=== PATIENT | female | born 2000 | race Caucasian/White ===

== ENCOUNTER → 2018-09-12 13:50 | Outpatient (CLI) | payer OTHER, SELFPAY ==
[2018-09-12 14:59] LABS: Add Manual Diff / Slide Review NO; Basophils Absolute Auto 0 /uL (0-100); Basophils Percent Auto 0.5 % (0-2); Eosinophils Absolute Auto 0 /uL (0-450); Eosinophils Percent Auto 0.5 % (2-4); Hematocrit 39.8 % (36-46); Hemoglobin 13.1 g/dL (12.0-16.0); Lymphocytes Absolute Auto 2400 /uL (1100-4500); Lymphocytes Percent Auto 29.2 % (25-40); Mean Corpuscular Hemoglobin 28.1 PG (26-34); Mean Corpuscular Volume 85.3 fL (80-100); Monocytes Absolute Auto 500 /uL (0-900); Monocytes Percent Auto 5.7 % (3-14); Neutrophils Absolute Auto 5200 /uL (1500-7000); Neutrophils Percent Auto 64.1 % (50-75); Platelet Count 393 X10^3/uL (150-400); Red Blood Cell Count 4.67 X10^6/uL (4.0-5.2); Red Cell Distribution Width 12.4 % (11.6-14.8); White Blood Cell Count 8.2 X10^3/uL (4.5-11.0)
[2018-09-12 15:11] LABS: Alanine Aminotransferase 26 IU/L (9-52); Albumin 4.5 g/dL (3.5-5.0); Albumin Globulin Ratio 1.6 (1.0-2.8); Alkaline Phosphatase 48 U/L (38-126); Aspartate Aminotransferase 24 IU/L (14-36); BUN Creatinine Ratio 17.5 (6-22); Bilirubin Total 0.2 mg/dL (0.2-1.3); Blood Urea Nitrogen 14 mg/dL (7-17); Carbon Dioxide 26 mmol/L (22-32); Chloride 104 mmol/L (98-107); Estimated Glomerular Filt Rate > 60.0 mL/min (>60); Globulin 2.9 g/dL (1.7-4.1); Glucose 91 mg/dL (70-100); HEMOLYSIS < 15 (0-50); Potassium 3.9 mmol/L (3.4-5.1); Sodium 141 mmol/L (137-145); Total Protein 7.4 g/dL (6.3-8.2)
[2018-09-12 15:42] LABS: TSH w/ Reflex to FT4 1.77 uIU/mL (0.47-4.68)
== END ==
PROVIDERS: PCP Family Medicine; Visit Provider Registered Nurse
DX: R53.83 Other fatigue (principal)
CPT/HCPCS: 36415; 80053; 82306; 84443; 85025

== ENCOUNTER → 2019-07-03 08:41 | Outpatient (CLI) | payer OTHER, SELFPAY ==
--- NOTE | 2019-07-03 08:42 | DI.US.S_ITS ---
PROCEDURE: US PELVIC COMPLETE INDICATIONS: PELVIC PAIN X 1 MONTH TECHNIQUE: Real-time scanning was performed of the pelvic organs, with image documentation. Additional endovaginal scanning was necessary due to incomplete visualization of the adnexal and endometrial structures by transabdominal scanning. COMPARISON: None. FINDINGS: Transabdominal scanning: Limited scanning through the kidneys shows no hydronephrosis. No pathologic free abdominal or pelvic fluid. Endovaginal scanning: Uterus: Uterus is normal in size at 7.7 x 3.4 x 3.8 cm. The endometrium measures 3.8 mm in combined thickness. Ovaries: Normal ovaries bilaterally. No adnexal masses. No abnormal free fluid. IMPRESSION: No source for pelvic pain identified. Dictated by: Balwinder Munoz [facility] Interpreted: Ed Bhandari MD on 07/03/2019 at 11:01 Approved by: Ed Bhandari M.D. on 07/03/2019 at 11:52
== END ==
PROVIDERS: PCP Family Medicine; Visit Provider Family Medicine
DX: R10.2 Pelvic and perineal pain (principal)
CPT/HCPCS: 76830; 76856

== ENCOUNTER → 2019-08-10 15:49 | Outpatient (CLI) | payer OTHER, SELFPAY | PROVIDERS: PCP Family Medicine; Visit Provider Physician Assistant | DX: Q79.60 Ehlers-Danlos syndrome, unspecified (principal) | CPT/HCPCS: 87086 ==

== ENCOUNTER → 2020-04-11 15:32 | Outpatient (CLI) | payer OTHER, SELFPAY ==
[2020-04-11 16:58] LABS: Add Manual Diff / Slide Review NO; Basophils Absolute Auto 100 /uL (0-100); Basophils Percent Auto 0.8 % (0-2); Eosinophils Absolute Auto 100 /uL (0-450); Eosinophils Percent Auto 1.7 % (2-4); Hematocrit 43.3 % (36-46); Hemoglobin 14.7 g/dL (12.0-16.0); Lymphocytes Absolute Auto 2600 /uL (1100-4500); Mean Corpuscular HGB Conc 33.8 % (30-36); Mean Corpuscular Hemoglobin 29.1 PG (26-34); Mean Corpuscular Volume 86.1 fL (80-100); Monocytes Absolute Auto 500 /uL (0-900); Monocytes Percent Auto 6.2 % (3-14); Neutrophils Absolute Auto 5400 /uL (1500-7000); Neutrophils Percent Auto 61.3 % (50-75); Platelet Count 359 X10^3/uL (150-400); Red Blood Cell Count 5.03 X10^6/uL (4.0-5.2); Red Cell Distribution Width 12.6 % (11.6-14.8); White Blood Cell Count 8.8 X10^3/uL (4.5-11.0)
[2020-04-11 17:33] LABS: BUN Creatinine Ratio 22.8 (6-22); Blood Urea Nitrogen 13 mg/dL (7-17); Calcium 10.1 mg/dL (8.4-10.2); Carbon Dioxide 27 mmol/L (22-32); Chloride 102 mmol/L (98-107); Estimated Glomerular Filt Rate > 60.0 mL/min (>60); Glucose 81 mg/dL (70-100); HEMOLYSIS < 15 (0-50); Potassium 4.6 mmol/L (3.4-5.1); Sodium 140 mmol/L (137-145)
[2020-04-11 17:35] LABS: C-Reactive Protein Quant < 0.5 mg/dL (<1.0); Erythrocyte Sedimentation Rate 5 MM/HR (0-20)
== END ==
PROVIDERS: PCP Family Medicine; Referring Provider Family Medicine; Visit Provider Family Medicine
DX: G44.209 Tension-type headache, unspecified, not intractable (principal)
CPT/HCPCS: 36415; 80048; 85025; 85651; 86140

== ENCOUNTER → 2020-04-15 07:37 | Outpatient (CLI) | payer OTHER, SELFPAY ==
--- NOTE | 2020-04-15 07:38 | DI.MRI.S_ITS ---
PROCEDURE: MR HEAD/BRAIN WO/W CON INDICATIONS: Persistent, new headache TECHNIQUE: Noncontrast axial T1 spin echo, axial T2 fast spin echo, sagittal and axial FLAIR, coronal T2 fast spin echo, axial gradient echo, axial diffusion and ADC through the brain. After the administration of contrast, axial and coronal 3D VIBE or T1 spin echo with fat saturation through the brain. COMPARISON: None. FINDINGS: Image quality: Excellent. CSF Spaces: Basal cisterns are patent. No extra-axial fluid collections. Ventricles are normal in size and shape. Cavum septum vergae is present. Brain: No midline shift. No intracranial bleeds or masses. No abnormal intracranial enhancement. The brainstem appears normal. Diffusion-weighted images demonstrate no acute ischemic insults. No chronic ischemic insults. Normal intravascular flow voids are present. Skull and face: Calvarial marrow is normal in signal. Orbits appear normal. Sinuses: Sinuses and mastoids appear clear. IMPRESSION: 1. Negative brain MRI. No explanation for headache. 2. No recent infarct. No acute process. Dictated by: Manuel Canales M.D. on 04/15/2020 at 8:38 Approved by: Manuel Canales M.D. on 04/15/2020 at 8:39
== END ==
PROVIDERS: PCP Family Medicine; Referring Provider Family Medicine; Visit Provider Family Medicine
DX: G44.209 Tension-type headache, unspecified, not intractable (principal)
CPT/HCPCS: 70553

== ENCOUNTER → 2020-11-01 10:15 | Outpatient (CLI) | payer OTHER, SELFPAY ==
[2020-11-01 11:19] LABS: D Dimer 238 ng/mL (<230)
== END ==
PROVIDERS: PCP Family Medicine; Referring Provider Student in an Organized Health Care Education/Training Program; Visit Provider Student in an Organized Health Care Education/Training Program
DX: M79.605 Pain in left leg (principal)
CPT/HCPCS: 36415; 85379

== ENCOUNTER → 2020-11-02 09:34 | Outpatient (CLI) | payer OTHER, SELFPAY ==
--- NOTE | 2020-11-02 09:36 | DI.US.S_ITS ---
PROCEDURE: US PERIPH VENOUS LOW EXTREM LT INDICATIONS: R/O DVT TECHNIQUE: Real-time imaging, as well as color and pulse Doppler interrogation, were performed of the lower extremity deep veins from the inguinal ligament to the popliteal fossa. COMPARISON: None. FINDINGS: The common femoral, femoral and popliteal veins are normally compressible, and free of intraluminal thrombus. Color and pulse Doppler demonstrate normal phasic intraluminal flow. There is normal augmentation response to distal compression maneuver. IMPRESSION: Negative left lower extremity duplex venous ultrasound for DVT. Dictated by: Paul Mak M.D. on 11/02/2020 at 10:40 Approved by: Paul Mak M.D. on 11/02/2020 at 10:40
== END ==
PROVIDERS: PCP Family Medicine; Referring Provider Student in an Organized Health Care Education/Training Program; Visit Provider Student in an Organized Health Care Education/Training Program
DX: M79.605 Pain in left leg (principal)
CPT/HCPCS: 93971

== ENCOUNTER → 2021-01-13 12:04 | Outpatient (CLI) | payer OTHER, SELFPAY ==
[2021-01-13 12:29] LABS: COVID19 -Nasal RAPID Negative (Negative)
[2021-01-13 12:42] LABS: Add Manual Diff / Slide Review NO; Basophils Absolute Auto 0 /uL (0-100); Basophils Percent Auto 0.6 % (0-2); Eosinophils Absolute Auto 100 /uL (0-450); Eosinophils Percent Auto 1.2 % (2-4); Hematocrit 42.4 % (36-46); Hemoglobin 14.3 g/dL (12.0-16.0); Lymphocytes Absolute Auto 2100 /uL (1100-4500); Lymphocytes Percent Auto 29.4 % (25-40); Mean Corpuscular HGB Conc 33.7 % (30-36); Mean Corpuscular Hemoglobin 29.2 PG (26-34); Mean Corpuscular Volume 86.5 fL (80-100); Monocytes Absolute Auto 500 /uL (0-900); Monocytes Percent Auto 7.6 % (3-14); Neutrophils Absolute Auto 4400 /uL (1500-7000); Neutrophils Percent Auto 61.2 % (50-75); Platelet Count 327 X10^3/uL (150-400); Red Cell Distribution Width 12.9 % (11.6-14.8); White Blood Cell Count 7.2 X10^3/uL (4.5-11.0)
[2021-01-13 12:53] LABS: Monotest Negative (Negative)
== END ==
PROVIDERS: PCP Family Medicine; Visit Provider Physician Assistant
DX: J02.9 Acute pharyngitis, unspecified (principal); R05 Cough; R50.9 Fever, unspecified; R59.9 Enlarged lymph nodes, unspecified; Z20.822 Contact with and (suspected) exposure to COVID-19
CPT/HCPCS: 36415; 85025; 86318; 87070; 87147; 87635

== ENCOUNTER 2021-01-13 14:42 | Emergency (ER) | payer OTHER, SELFPAY ==
[2021-01-13 14:53] VITALS: BP 135/88; PULSE 79; RESP 15; TEMP 37.2; O2SAT 97; BMI 37.1
--- NOTE | 2021-01-13 20:00 | PC.NURSE ---
Spoke with patient, increase headache, neck pain and pain with swallowing. Verbal order from Dr Fletcher for tylenol for pain.
[2021-01-13] MEDS: ACETAMINOPHEN 325 MG TABLET 975 MG PO (20:04)
[2021-01-13 22:24] VITALS: PULSE 63; O2SAT 99
[2021-01-13 22:30] VITALS: PULSE 64; O2SAT 99
--- NOTE | 2021-01-13 22:58 | ED_ITS ---
HPI - Headache General Chief Complaint: Headache Stated Complaint: sent from [facility], poss meningitis, neck pain, swollen Time Seen by Provider: 01/13/21 22:31 Source: patient Mode of arrival: Ambulatory Limitations: no limitations History of Present Illness HPI Narrative: 20-year-old female nonsmoker with history of anxiety presents with significant other and a chief complaint of silly increasing left-sided neck pain and swelling along with sore throat since yesterday. There is no fever, photophobia, exertional symptoms, confusion. Patient had negative strep, COVID and for further evaluation. Patient denies any runny nose or trouble swallowing. She has no difficulty breathing, chest pain or cough. She denies any obvious provocation, palliation or radiation. She is developing of vague, generalized headache MD Complaint: headache Onset (ago): hour(s) Onset description: gradual Location: occipital Severity: mild Quality: aching, throbbing and different than previous headaches Relieving factors: nothing Exacerbating factors: none Treatments prior to arrival: none Related Data Home Medications Medication Instructions Recorded Confirmed multivitamin [Multiple Vitamins] 1 tab PO QDAY #0 08/12/17 01/13/21 Previous Rx's Medication Instructions Recorded baclofen 10 mg tablet 10 mg PO TID PRN #30 tab 08/21/19 hydroxyzine HCl 25 mg tablet See Rx Instructions PO TID PRN #30 06/15/20 tab citalopram 10 mg tablet 10 mg PO DAILY #90 tab 09/26/20 Allergies Allergy/AdvReac Type Severity Reaction Status Date / Time ibuprofen Allergy Mild LIPS SWELL Verified 01/13/21 14:53 Sulfa (Sulfonamide Allergy Mild RASH Verified 01/13/21 14:53 Antibiotics) Review of Systems Constitutional Constitutional: Denies chills, Denies fatigue, Denies fever(s), Denies frequent falls, Reports headache(s), Denies lethargy and Denies weakness Eyes Eyes: Denies change in vision, Denies eye discharge, Denies irritation and Denies loss of vision ENT Ears, Nose, Mouth, and Throat: Denies change in voice, Denies dizziness, Reports headache(s), Reports neck pain, Denies sore throat and Denies throat swelling Cardiovascular Cardiovascular: Denies chest pain, Denies irregular heart rhythm, Denies lightheadedness, Denies palpitations, Denies dyspnea, Denies dyspnea on exertion and Denies orthopnea Respiratory Respiratory: Denies cough, Denies dyspnea, Denies dyspnea on exertion and Denies wheezing Gastrointestinal Gastrointestinal: Denies abdominal pain, Denies change in bowel habits, Denies diarrhea, Denies nausea and Denies vomiting Musculoskeletal Musculoskeletal: Reports neck pain and Denies numbness Integumentary/Breasts Skin/Breast: Denies pruritus, Denies erythema, Denies rash and Denies wounds Neurologic Neurologic: Denies behavioral changes, Denies confusion, Denies dizziness, Denies frequent falls, Reports headache(s), Denies loss of vision, Denies numbness and Denies weakness Psychiatric Psychiatric: Denies anxiety, Denies behavioral changes, Denies confusion, Denies depression, Denies homicidal ideation and Denies suicidal ideation Endocrine Endocrine: Denies fatigue, Denies flushing and Denies palpitations Hematologic/Lymphatic Hematologic/Lymphatic: Denies easy bruising Allergic/Immunologic Allergic/Immunologic: Denies urticaria, Denies throat swelling and Denies wheezing Patient History Medical History Depression Caridad-Danlos syndrome Family history of breast cancer Latex allergy Surgical History History of ankle surgery History of knee surgery Family History Mother Caridad-Danlos syndrome Social History Smoking Status: Never smoker alcohol intake: never substance use type: does not use Smoking Status: Never smoker alcohol intake frequency: holidays/special occasions only Substance Use Type: marijuana Exam Narrative Exam Narrative: GENERAL: [20] year old patient appears stated age. Well- developed patient, in mild distress. GCS 15 HEAD: Atraumatic. Normocephalic. EYES: Pupils equal round and reactive. Extraocular motions intact. No scleral icterus. No injection or drainage. ENT: Nose without bleeding, purulent drainage. Throat without erythema, tonsillar hypertrophy or exudate. Airway patent. NECK: Trachea midline. No meningeal signs. Tender lymphadenopathy bilaterally without any erythema, warmth, induration or fluctuance. CARDIOVASCULAR: Regular rate and rhythm without murmurs, gallops, or rubs. RESPIRATORY: Clear to auscultation. Breath sounds equal bilaterally. No wheezes, rales, or rhonchi. GASTROINTESTINAL: Abdomen soft, non-tender, nondistended. EXTREMITIES: No edema or joint tenderness. BACK: Nontender without deformity or crepitance. No flank tenderness. NEURO: AOx3. SKIN: No rash or erythema of visible areas Initial Vital Signs Initial Vital Signs: Vital Signs Temperature 99.0 F 01/13/21 14:53 Pulse Rate 79 01/13/21 14:53 Respiratory Rate 15 01/13/21 14:53 Blood Pressure 135/88 01/13/21 14:53 Pulse Oximetry 97 01/13/21 14:53 Procedures Lumbar Puncture Time Out Performed: Yes Patient Position: upright Skin Prep: Povidone-Iodine 1% Local Anesthetic: lidocaine 1% Amount of anesthesia used (mL): 6 Spinal Needle Gauge: 22G Interspace Used: L4-L5 Fluid Initially Obtained: clear Complications: none Course Orders Ordered: ED Orders 01/13/21 23:15 CT soft tissue neck w con Stat 01/13/21 23:25 Complete Blood Count AUTO DIFF Stat Comprehensive Metabolic Panel Stat 01/14/21 04:05 CSF culture Stat Cell Count w Diff CSF Stat Glucose CSF Stat Meningitis Panel (Film Array) Stat Total Protein CSF Stat Discontinued Medications Acetaminophen (Acetaminophen 325 Mg Tablet) 975 mg PO NOW ONE Stop: 01/13/21 20:01 Last Admin: 01/13/21 20:04 Dose: 975 mg Documented by: DENY Sodium Chloride (Normal Saline 0.9%) 1,000 mls @ 1,000 mls/hr IV BOLUS ONE Stop: 01/14/21 00:14 Last Infusion: 01/14/21 00:40 Dose: 0 mls/hr Documented by: [email or web address] Admin: 01/13/21 23:29 Dose: 1,000 mls/hr Documented by: [email or web address] Vital Signs Vital signs: Vital Signs - 8 hr 01/13/21 22:24 01/13/21 22:30 01/13/21 23:00 Pulse Rate 63 64 65 Blood Pressure 112/57 L Pulse Oximetry 99 99 98 01/14/21 01:11 01/14/21 01:14 01/14/21 01:30 Pulse Rate 76 71 64 Blood Pressure 105/56 L 114/64 Pulse Oximetry 97 98 98 06/26/21 02:00 01/14/21 02:32 01/14/21 03:00 Pulse Rate 68 76 67 Blood Pressure 117/56 L Pulse Oximetry 96 97 96 01/14/21 03:30 01/14/21 04:45 01/14/21 04:46 Pulse Rate 70 71 70 Blood Pressure 123/66 Pulse Oximetry 96 98 97 01/14/21 05:00 01/14/21 05:30 Pulse Rate 66 67 Blood Pressure 105/55 L 112/60 Pulse Oximetry 97 96 MDM - Headache Lab Data Result diagrams: 01/13/21 23:25 01/13/21 23:25 Labs: Lab Results 01/13/21 01/13/21 01/14/21 Range/Units 23:25 23:25 04:05 WBC 9.7 (4.5-11.0) X10^3/uL RBC 4.96 (4.0-5.2) X10^6/uL Hgb 14.4 (12.0-16.0) g/dL Hct 42.8 (36-46) % MCV 86.3 (80-100) fL MCH 29.0 (26-34) PG MCHC 33.5 (30-36) % RDW 12.9 (11.6-14.8) % Plt Count 333 (150-400) X10^3/uL Neut % (Auto) 60.1 (50-75) % Lymph % (Auto) 30.3 (25-40) % [place] % (Auto) 8.3 (3-14) % Eos % (Auto) 0.8 L (2-4) % Baso % (Auto) 0.5 (0-2) % Neut # (Auto) 5800 (1713-3949) /uL Lymph # (Auto) 2900 (2762-0788) /uL [place] # (Auto) 800 (0-900) /uL Eos # (Auto) 100 (0-450) /uL Baso # (Auto) 100 (0-100) /uL Sodium 142 (137-145) mmol/L Potassium 3.7 (3.4-5.1) mmol/L Chloride 104 (98-107) mmol/L Carbon Dioxide 28 (22-32) mmol/L BUN 13 (7-17) mg/dL Creatinine 0.60 (0.52-1.04) mg/dL Estimated GFR > 60.0 (>60) mL/min BUN/Creatinine Ratio 21.7 (6-22) Glucose 83 (70-100) mg/dL Calcium 9.9 (8.4-10.2) mg/dL Total Bilirubin 0.4 (0.2-1.3) mg/dL AST 31 (14-36) IU/L ALT 23 (<35) IU/L Alkaline Phosphatase 72 (38-126) U/L Total Protein 7.8 (6.3-8.2) g/dL Albumin 4.6 (3.5-5.0) g/dL Globulin 3.2 (1.7-4.1) g/dL Albumin/Globulin Ratio 1.4 (1.0-2.8) CSF Tube Number 3 CSF Volume 1.25 ml CSF Appearance Clear (Clear) CSF Color Colorless (Colorless) CSF WBC 1 (0-5) MONO/uL CSF RBC 0 RBC /uL CSF Mononuclear WBCs TNP CSF Polynuclear WBCs TNP CSF Glucose 45 (40-70) mg/dL CSF Total Protein 38 (12-60) mg/dL CSF C.neoform/gat PCR (Not Detect) CSF CMV DNA (PCR) (Not Detect) CSF Enterovirus (PCR) (Not Detect) CSF E. coli (PCR) (Not Detect) CSF H. influenzae (PCR) (Not Detect) CSF HSV I (PCR) (Not Detect) CSF HSV II (PCR) (Not Detect) CSF HHV 6 (PCR) (Not Detect) CSF L.monocytogenes PCR (Not Detect) CSF N. meningitidis PCR (Not Detect) CSF Parechovirus (PCR) (Not Detect) CSF S. agalactiae (PCR) (Not Detect) CSF S. pneumoniae (PCR) (Not Detect) CSF VZV (PCR) (Not Detecte) 01/14/21 Range/Units 04:05 WBC (4.5-11.0) X10^3/uL RBC (4.0-5.2) X10^6/uL Hgb (12.0-16.0) g/dL Hct (36-46) % MCV (80-100) fL MCH (26-34) PG MCHC (30-36) % RDW (11.6-14.8) % Plt Count (150-400) X10^3/uL Neut % (Auto) (50-75) % Lymph % (Auto) (25-40) % [place] % (Auto) (3-14) % Eos % (Auto) (2-4) % Baso % (Auto) (0-2) % Neut # (Auto) (7167-4440) /uL Lymph # (Auto) (8283-9952) /uL [place] # (Auto) (0-900) /uL Eos # (Auto) (0-450) /uL Baso # (Auto) (0-100) /uL Sodium (137-145) mmol/L Potassium (3.4-5.1) mmol/L Chloride (98-107) mmol/L Carbon Dioxide (22-32) mmol/L BUN (7-17) mg/dL Creatinine (0.52-1.04) mg/dL Estimated GFR (>60) mL/min BUN/Creatinine Ratio (6-22) Glucose (70-100) mg/dL Calcium (8.4-10.2) mg/dL Total Bilirubin (0.2-1.3) mg/dL AST (14-36) IU/L ALT (<35) IU/L Alkaline Phosphatase (38-126) U/L Total Protein (6.3-8.2) g/dL Albumin (3.5-5.0) g/dL Globulin (1.7-4.1) g/dL Albumin/Globulin Ratio (1.0-2.8) CSF Tube Number CSF Volume CSF Appearance (Clear) CSF Color (Colorless) CSF WBC (0-5) MONO/uL CSF RBC RBC /uL CSF Mononuclear WBCs CSF Polynuclear WBCs CSF Glucose (40-70) mg/dL CSF Total Protein (12-60) mg/dL CSF C.neoform/gat PCR Not detected (Not Detect) CSF CMV DNA (PCR) Not detected (Not Detect) CSF Enterovirus (PCR) Not detected (Not Detect) CSF E. coli (PCR) Not detected (Not Detect) CSF H. influenzae (PCR) Not detected (Not Detect) CSF HSV I (PCR) Not detected (Not Detect) CSF HSV II (PCR) Not detected (Not Detect) CSF HHV 6 (PCR) Not detected (Not Detect) CSF L.monocytogenes PCR Not detected (Not Detect) CSF N. meningitidis PCR Not detected (Not Detect) CSF Parechovirus (PCR) Not detected (Not Detect) CSF S. agalactiae (PCR) Not detected (Not Detect) CSF S. pneumoniae (PCR) Not detected (Not Detect) CSF VZV (PCR) Not detected (Not Detecte) Point of Care Testing Test Results Negative Urine Dip Bedside Urine Glucose Negative Bedside Urine Bilirubin - Negative Bedside Urine Ketone +/- 5 Urine Specific [place] 1.030 Bedside Urine Occult Blood - Negative Bedside Urine pH 6 Bedside Urine Protein +/- 15 Bedside Urine Urobilinogen - Negative Bedside Urine Nitrite - Negative Bedside Urine Leukocytes - Negative Esterase Imaging Data CT Soft TIssue Neck: Radiologist's Impression: NAP MDM Narrative Medical decision making narrative: Multiple etiologies for patient's symptoms considered including: [Strep throat versus COVID versus peritonsillar abscess versus meningitis versus other] Patient's symptoms improved over duration of stay with above-stated therapies. Findings and discharge diagnosis discussed with patient/family followed by verbalization of understanding Return precautions discussed with patient/family whom verbalize understanding. Discharge Plan Departure Prescriptions: No Action multivitamin [Multiple Vitamins] 1 EACH tablet 1 tab PO QDAY Qty: 0 RF: 0 baclofen 10 mg tablet 10 mg PO TID PRN (Reason: muscle spasms) Qty: 30 RF: 0 hydroxyzine HCl 25 mg tablet See Rx Instructions PO TID PRN (Reason: anxiety) Qty: 30 RF: 3 citalopram 10 mg tablet 10 mg PO DAILY Qty: 90 RF: 1 Referrals: Missy Guerra DO [Primary Care Provider] -
[2021-01-13 23:00] VITALS: BP 112/57; PULSE 65; O2SAT 98
--- NOTE | 2021-01-13 23:15 | DI.CT.S_ITS ---
PROCEDURE: CT SOFT TISSUE NECK W CON INDICATIONS: neck pain, swelling TECHNIQUE: After the administration of intravenous contrast, 3.0 mm axial sections acquired from the sella to the aortic arch. Additional oblique axial 3.0 mm sections acquired through the pharynx. 3 mm thick coronal and sagittal reformats were generated. For radiation dose reduction, the following was used: automated exposure control. COMPARISON: None. FINDINGS: Image quality: Excellent. Lymph nodes: Shotty bilateral cervical adenopathy. Findings include a lymph node measuring 2.7 by 1.6 x 0.9 cm on image 45/5 and image 34/2. Also present is right cervical lymph node which measures approximately 2.5 x 0.3 x 1.1 cm on images 41/5 and 37/2. This likely represents reactive cervical adenopathy. Vessels: Visualized vasculature appears patent. Neck spaces: The oropharynx, nasopharynx, and pharynx demonstrate no mucosal lesions. The vocal cords, false vocal cords, pyriform sinuses, epiglottis, vallecula, and tongue base all appear normal. Extramucosal spaces appear unremarkable. Glands: The parotid and submandibular glands appear normal. Thyroid gland is unremarkable. Miscellaneous: Visualized brain and orbits appear normal. Lung apices appear clear. Superficial soft tissues appear normal. Bones: No suspicious bony lesions. Visualized sinuses and mastoids appear unremarkable. IMPRESSION: 1. Shotty bilateral cervical adenopathy, likely reactive in nature. 2. No abscess. Widely patent airway. Normal epiglottis. Comment: Final report is concordant with preliminary interpretation provided by [facility]. Dictated by: Paul Mak M.D. on 01/14/2021 at 6:40 Approved by: Paul Mak M.D. on 01/14/2021 at 6:46
[2021-01-13] MEDS: SODIUM CHLORIDE 0.9% 1,000 ML 1000 ML IV (23:29)
[2021-01-13 23:38] LABS: Add Manual Diff / Slide Review NO; Basophils Absolute Auto 100 /uL (0-100); Basophils Percent Auto 0.5 % (0-2); Eosinophils Absolute Auto 100 /uL (0-450); Eosinophils Percent Auto 0.8 % (2-4); Hematocrit 42.8 % (36-46); Hemoglobin 14.4 g/dL (12.0-16.0); Lymphocytes Absolute Auto 2900 /uL (1100-4500); Lymphocytes Percent Auto 30.3 % (25-40); Mean Corpuscular HGB Conc 33.5 % (30-36); Mean Corpuscular Volume 86.3 fL (80-100); Monocytes Absolute Auto 800 /uL (0-900); Monocytes Percent Auto 8.3 % (3-14); Neutrophils Absolute Auto 5800 /uL (1500-7000); Neutrophils Percent Auto 60.1 % (50-75); Platelet Count 333 X10^3/uL (150-400); Red Blood Cell Count 4.96 X10^6/uL (4.0-5.2); Red Cell Distribution Width 12.9 % (11.6-14.8); White Blood Cell Count 9.7 X10^3/uL (4.5-11.0)
[2021-01-13 23:45] LABS: Alanine Aminotransferase 23 IU/L (<35); Albumin 4.6 g/dL (3.5-5.0); Albumin Globulin Ratio 1.4 (1.0-2.8); Alkaline Phosphatase 72 U/L (38-126); Aspartate Aminotransferase 31 IU/L (14-36); BUN Creatinine Ratio 21.7 (6-22); Bilirubin Total 0.4 mg/dL (0.2-1.3); Blood Urea Nitrogen 13 mg/dL (7-17); Calcium 9.9 mg/dL (8.4-10.2); Carbon Dioxide 28 mmol/L (22-32); Chloride 104 mmol/L (98-107); Estimated Glomerular Filt Rate > 60.0 mL/min (>60); Globulin 3.2 g/dL (1.7-4.1); Glucose 83 mg/dL (70-100); HEMOLYSIS < 15 (0-50); Potassium 3.7 mmol/L (3.4-5.1); Sodium 142 mmol/L (137-145); Total Protein 7.8 g/dL (6.3-8.2)
[2021-01-14] VITALS (11 sets, daily range): BP systolic 105–123; BP diastolic 55–66; PULSE 64–76; O2SAT 96–98
[2021-01-14 04:22] LABS: Glucose CSF 45 mg/dL (40-70); Total Protein CSF 38 mg/dL (12-60)
[2021-01-14 04:51] LABS: Appearance CSF Clear (Clear); CSF Tube Number 3; CSF Tube Volume 1.25 mL; Color CSF Colorless (Colorless); Red Blood Cell CSF 0 RBC /uL; White Blood Cell CSF 1 MONO/uL (0-5)
[2021-01-14 05:47] LABS: Escherichia coli K1 Not Detected (Not Detect)
[2021-01-14 05:48] LABS: Cryptococcus neoformans/gattii Not Detected (Not Detect); Enterovirus Not Detected (Not Detect); Haemophilus influenzae Not Detected (Not Detect); Herpes simplex virus 1 Not Detected (Not Detect); Herpes simplex virus 2 Not Detected (Not Detect); Human herpesvirus 6 Not Detected (Not Detect); Human parechovirus Not Detected (Not Detect); Listeria monocytogenes Not Detected (Not Detect); Neisseria meningitidis Not Detected (Not Detect); Streptococcus agalactiae Not Detected (Not Detect); Streptococcus pneumoniae Not Detected (Not Detect); Varicella Zoster Virus Not Detected (Not Detecte)
== END 2021-01-14 06:07 | disposition home or self-care (01) ==
PROVIDERS: Emergency Provider Emergency Medicine; PCP Family Medicine
DX: R51.9 Headache, unspecified (principal); J02.9 Acute pharyngitis, unspecified; M54.2 Cervicalgia
CPT/HCPCS: 36415; 62270; 70491; 80053; 81003; 81025; 82945; 84157; 85025; 87070; 87205; 87798; 89051; 96360; 99285; Q9967

== ENCOUNTER → 2021-04-17 14:15 | Outpatient (CLI) | payer OTHER, SELFPAY | PROVIDERS: PCP Family Medicine; Visit Provider Nurse Practitioner Family | DX: J31.2 Chronic pharyngitis (principal) | CPT/HCPCS: 87070 ==

== ENCOUNTER → 2021-04-23 14:09 | Outpatient (CLI) | payer OTHER, SELFPAY ==
[2021-04-23 14:30] LABS: COVID19 -Nasal RAPID Negative (Negative)
== END ==
PROVIDERS: PCP Family Medicine; Visit Provider Nurse Practitioner Family
DX: J02.9 Acute pharyngitis, unspecified (principal); R51.9 Headache, unspecified; Z20.822 Contact with and (suspected) exposure to COVID-19
CPT/HCPCS: 87070; 87077; 87147; 87635

== ENCOUNTER → 2021-05-01 12:15 | Outpatient (CLI) | payer OTHER, SELFPAY ==
[2021-05-01 12:40] LABS: Add Manual Diff / Slide Review NO; Basophils Absolute Auto 100 /uL (0-100); Basophils Percent Auto 0.7 % (0-2); Eosinophils Absolute Auto 100 /uL (0-450); Eosinophils Percent Auto 0.8 % (2-4); Hematocrit 42.5 % (36-46); Hemoglobin 14.1 g/dL (12.0-16.0); Lymphocytes Absolute Auto 3000 /uL (1100-4500); Lymphocytes Percent Auto 35.1 % (25-40); Mean Corpuscular HGB Conc 33.3 % (30-36); Mean Corpuscular Hemoglobin 28.2 PG (26-34); Mean Corpuscular Volume 84.8 fL (80-100); Monocytes Absolute Auto 400 /uL (0-900); Monocytes Percent Auto 4.4 % (3-14); Neutrophils Absolute Auto 5100 /uL (1500-7000); Platelet Count 358 X10^3/uL (150-400); Red Blood Cell Count 5.01 X10^6/uL (4.0-5.2); Red Cell Distribution Width 12.8 % (11.6-14.8); White Blood Cell Count 8.6 X10^3/uL (4.5-11.0)
[2021-05-01 12:55] LABS: Monotest Negative (Negative)
[2021-05-01 13:11] LABS: Alanine Aminotransferase 20 IU/L (<35); Albumin 4.6 g/dL (3.5-5.0); Albumin Globulin Ratio 1.5 (1.0-2.8); Alkaline Phosphatase 68 U/L (38-126); Aspartate Aminotransferase 28 IU/L (14-36); BUN Creatinine Ratio 17.5 (6-22); Bilirubin Total 0.3 mg/dL (0.2-1.3); Blood Urea Nitrogen 11 mg/dL (7-17); Calcium 9.9 mg/dL (8.4-10.2); Carbon Dioxide 25 mmol/L (22-32); Chloride 105 mmol/L (98-107); Estimated Glomerular Filt Rate > 60.0 mL/min (>60); Globulin 3.1 g/dL (1.7-4.1); Glucose 96 mg/dL (70-100); HEMOLYSIS < 15 (0-50); Potassium 4.3 mmol/L (3.4-5.1); Sodium 138 mmol/L (137-145); Total Protein 7.7 g/dL (6.3-8.2)
[2021-05-01 13:42] LABS: TSH w/ Reflex to FT4 2.22 uIU/mL (0.47-4.68)
== END ==
PROVIDERS: PCP Family Medicine; Referring Provider Family Medicine; Visit Provider Family Medicine
DX: R13.10 Dysphagia, unspecified (principal); J02.9 Acute pharyngitis, unspecified
CPT/HCPCS: 36415; 80053; 84443; 85025; 86318

== ENCOUNTER → 2021-05-09 14:44 | Outpatient (CLI) | payer OTHER, SELFPAY ==
--- NOTE | 2021-05-09 14:45 | DI.US.S_ITS ---
PROCEDURE: US THYROID INDICATIONS: DYSPHAGIA TECHNIQUE: Real-time scanning was performed of the thyroid gland, with image documentation. COMPARISON: None. FINDINGS: Right: Thyroid lobe measures 5.0 x 1.1 x 1.6 cm, and is homogeneous in echotexture. Left: Thyroid lobe measures 4.1 x 0.9 x 1.5 cm, and is homogenous in echotexture. Isthmus: 3 mm thick. IMPRESSION: Unremarkable thyroid ultrasound. ACR TI-RADS definitions and recommendations: TI-RADS 1 (benign): 0 points. FNA not needed. TI-RADS 2 (not suspicious): 2 points. FNA not needed. TI-RADS 3 (mildly suspicious): 3 points. * FNA if 2.5 cm or larger, follow up if 1.5 cm or larger (at 1, 3, and 5 years). TI-RADS 4 (moderately suspicious): 4-6 points. * FNA if 1.5 cm or larger, follow up if 1 cm or larger (at 1, 2, 3, and 5 years). TI-RADS 5 (highly suspicious): 7 points or more. * FNA if 1 cm or larger, follow up if 0.5 cm or larger (every year for 5 years). Dictated by: Paul Mak M.D. on 05/09/2021 at 17:03 Approved by: Paul Mak M.D. on 05/09/2021 at 17:05
== END ==
PROVIDERS: PCP Family Medicine; Referring Provider Family Medicine; Visit Provider Family Medicine
DX: R13.10 Dysphagia, unspecified (principal)
CPT/HCPCS: 76536

== ENCOUNTER → 2021-09-18 18:32 | Outpatient (CLI) | payer OTHER, SELFPAY ==
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
== END ==
PROVIDERS: PCP Family Medicine; Referring Provider Family Medicine; Visit Provider Family Medicine
DX: G44.52 New daily persistent headache (NDPH) (principal); H53.9 Unspecified visual disturbance
CPT/HCPCS: 70551

== ENCOUNTER → 2022-02-11 12:39 | Outpatient (CLI) | payer OTHER, SELFPAY | PROVIDERS: PCP Family Medicine; Visit Provider Physician Assistant | DX: J31.2 Chronic pharyngitis (principal) | CPT/HCPCS: 87070 ==

== ENCOUNTER → 2022-02-15 15:22 | Outpatient (CLI) | payer OTHER, SELFPAY ==
[2022-02-15 16:19] LABS: COVID19 -Nasal RAPID Negative (Negative)
== END ==
PROVIDERS: PCP Family Medicine; Visit Provider Physician Assistant
DX: Z20.822 Contact with and (suspected) exposure to COVID-19 (principal)
CPT/HCPCS: 87635

== ENCOUNTER → 2022-03-12 08:08 | Outpatient (CLI) | payer OTHER, SELFPAY ==
--- NOTE | 2022-03-12 08:09 | DI.MG.S_ITS ---
BILATERAL DIGITAL DIAGNOSTIC MAMMOGRAM 3D/2D: 03/12/2022 CLINICAL: Baseline. Right Mastodynia. No prior exams were available for comparison. The tissue of both breasts is heterogeneously dense. This may lower the sensitivity of mammography. No significant masses, calcifications, or other findings are seen in either breast. IMPRESSION: INCOMPLETE: NEEDS ADDITIONAL IMAGING EVALUATION There is no abnormality seen in the right breast to correspond with the palpable abnormality and pain, however, ultrasound is recommended. This exam was interpreted at Station ID: [id number]. NOTE: For mammograms, a report in lay terms will be sent to the patient. Approximately 15% of breast malignancies will not be visualized mammographically. In the management of a palpable breast mass, a negative mammogram must not discourage biopsy of a clinically suspicious lesion. Electronically Signed By: Alejandro watts/shaji:03/12/2022 13:15:26 ACR BI-RADS Category 0: Incomplete [id number]
--- NOTE | 2022-03-12 08:09 | DI.US.S_ITS ---
LIMITED ULTRASOUND OF RIGHT BREAST AND AXILLA: 03/12/2022 CLINICAL: Focal right breast pain. Possible mass 5:00. Comparison is made to exam dated: 03/12/2022 mammogram - [facility]. Real-time ultrasound of the right breast 5 o'clock, 9 o'clock, and axilla regions was performed. Escobar scale images of the real-time examination were reviewed. No significant abnormalities were seen sonographically in the right breast or the right axilla. IMPRESSION: NEGATIVE There is no sonographic evidence of malignancy. There is no abnormality seen in the right breast to correspond with the palpable abnormality and pain, however, clinical followup is recommended. This exam was interpreted at Station ID: Unknown. Electronically Signed By: Alejandro watts/shaji:03/12/2022 13:17:35 Entry: - 03/13/2022 11:10:26 letter sent: Clinical Evaluation Ultrasound BI-RADS: 1 Negative
== END ==
PROVIDERS: PCP Family Medicine; Referring Provider Physician Assistant; Visit Provider Physician Assistant
DX: N64.4 Mastodynia (principal); R92.2 Inconclusive mammogram
CPT/HCPCS: 76642; 77066; G0279

== ENCOUNTER → 2022-08-08 14:06 | Outpatient (CLI) | payer OTHER, SELFPAY ==
[2022-08-08 14:54] LABS: COVID-19 CEPHEID 4-PLEX PCR Negative (Negative); Influenza A - CEPHEID Flu A NEGATIVE (NEGATIVE); Influenza B - CEPHEID Flu B NEGATIVE (NEGATIVE); Respiratory Syncytial Virus Negative (Negative)
== END ==
PROVIDERS: PCP Family Medicine; Visit Provider Nurse Practitioner Family
DX: R05.1 Acute cough (principal); J02.9 Acute pharyngitis, unspecified
CPT/HCPCS: 0241U; 87070; 87077; 87147

== ENCOUNTER 2022-09-03 22:04 | Emergency (ER) | payer OTHER, SELFPAY ==
[2022-09-03 22:09] VITALS: BP 140/67; PULSE 80; RESP 18; TEMP 35.5; O2SAT 97; BMI 40.3
--- NOTE | 2022-09-03 22:25 | ED.GENADULT ---
HPI - General Adult General Chief complaint: Urogenital-Female Stated complaint: vaginal pain Time Seen by Provider: 09/03/22 22:18 Source: patient Mode of arrival: Ambulatory Limitations: no limitations History of Present Illness HPI narrative: Patient is a 22-year-old female who is here for evaluation of vaginal discomfort. She states that she took some antibiotics for a strep throat infection several weeks ago. She stated that she had some adverse reactions to these antibiotics to include quite a bit of vaginal dryness. She states that she drank quite a bit of water and improve the symptoms somewhat but did not think that the vaginal area completely recovered. She had sexual intercourse last evening. She stated that it was very uncomfortable and afterwards had burning. She was concerned about a yeast infection so she did take some [id number] yeast cream. She feels like her vagina is swollen. She has no concern about sexually transmitted infections. Related Data Home Medications Medication Instructions Recorded Confirmed multivitamin (Multiple Vitamins 1 tab PO QDAY ##0 08/12/17 08/08/22 tablet) Previous Rx's Medication Instructions Recorded mupirocin 2 % topical ointment 1 applic topical TID #15 grams 05/03/22 cyclobenzaprine 5 mg tablet 5 mg PO TID PRN muscle spasm #10 06/11/22 tabs lidocaine 5 % topical patch 1 patch topical DAILY #15 ea 06/11/22 metronidazole 500 mg tablet 500 mg PO BID 7 days #13 tabs 09/04/22 Allergies Allergy/AdvReac Type Severity Reaction Status Date / Time ibuprofen Allergy Mild LIPS SWELL Verified 08/08/22 14:06 Sulfa (Sulfonamide Allergy Mild RASH Verified 08/08/22 14:06 Antibiotics) Review of Systems Constitutional Constitutional: Reports system reviewed and no additional complaints, except as documented Gastrointestinal Gastrointestinal: Reports system reviewed and no additional complaints, except as documented Genitourinary Genitourinary: Reports system reviewed and no additional complaints, except as documented Integumentary/Breasts Skin/Breast: Reports system reviewed and no additional complaints, except as documented Patient History Medical History Depression Caridad-Danlos syndrome Family history of breast cancer Latex allergy Surgical History History of ankle surgery History of knee surgery Family History Mother Caridad-Danlos syndrome Social History Smoking Status: Never smoker alcohol intake: never substance use type: does not use Smoking Status: Never smoker alcohol intake frequency: holidays/special occasions only Substance Use Type: marijuana Exam Initial Vital Signs Initial Vital Signs: Vital Signs Temperature 96 F L 09/03/22 22:09 Pulse Rate 80 09/03/22 22:09 Respiratory Rate 18 09/03/22 22:09 Blood Pressure 140/67 09/03/22 22:09 Pulse Oximetry 97 09/03/22 22:09 Oxygen Delivery Method 09/03/22 22:09 HENKS Head: normal to inspection and normocephalic Other: Patient does some mild swelling and irritation around the clitoris and the labia minora. There are no lacerations. The cervix is unremarkable. She does have discharge but unsure if this is secondary to the cream that she is used [id number]. She is no cervical motion tenderness. No masses noted. No bleeding. Cervical os is closed. Exam performed with nurse Shannon at bedside. Skin General: no rashes or lesions noted Neuro General: patient alert, patient awake and moves all extremities Extrem General: normal to inspection and capillary refill normal Course Orders Ordered: ED Orders 09/03/22 22:29 Urine Culture Stat Urine Microscopic Stat 09/03/22 22:53 GC Screen Stat DONNIE Prep Stat Wet Prep Tric BV [place] Stat Discontinued Medications Metronidazole (Metronidazole 500 Mg Tablet) 500 mg PO NOW ONE Stop: 09/04/22 00:02 Last Admin: 09/04/22 00:08 Dose: 500 mg Documented By: EDUIN Vital Signs Vital signs: Vital Signs - 8 hr 09/03/22 22:09 09/04/22 00:15 Temperature 96 F L Pulse Rate 80 80 Respiratory Rate 18 16 Blood Pressure 140/67 125/89 Pulse Oximetry 97 98 Oxygen Delivery Method Room Air Room Air Medical Decision Making Lab Data Lab results reviewed: Yes I reviewed the patient's lab results. Labs: Lab Results 09/03/22 Range/Units 22:29 Urine RBC 1-5/hpf (0-5/HPF) Urine WBC 1-5/hpf (0-5/HPF) Ur Squamous Epith Cells 1-5 /hpf (0-5/HPF) Urine Bacteria Few (2-10) H (None) Ur Culture Indicated? Specimen cultured Point of Care Testing Test Results Negative Urine Dip Bedside Urine Glucose Negative Bedside Urine Bilirubin - Negative Bedside Urine Ketone - Negative Urine Specific [place] 1.025 Bedside Urine Occult Blood +/- Bedside Urine pH 6.0 Bedside Urine Protein - Negative Bedside Urine Urobilinogen - Negative Bedside Urine Nitrite - Negative Bedside Urine Leukocytes + 70 Esterase Point of care testing: Point of Care Testing Test Results Negative Urine Dip Bedside Urine Glucose Negative Bedside Urine Bilirubin - Negative Bedside Urine Ketone - Negative Urine Specific [place] 1.025 Bedside Urine Occult Blood +/- Bedside Urine pH 6.0 Bedside Urine Protein - Negative Bedside Urine Urobilinogen - Negative Bedside Urine Nitrite - Negative Bedside Urine Leukocytes + 70 Esterase MDM Narrative Medical decision making narrative: test is negative. Urinalysis does have bacteria but given her presentation we will wait for the urine culture to result for treating with any antibiotics for this. She does not have any yeast in the wet prep. Negative for Trichomonas. She does have clue cells consistent with bacterial vaginosis so we will start on antibiotics for this. She is no cervical motion tenderness. Low suspicion for PID. A GC chlamydia culture is pending and the patient is aware this we will contact her if we need to start on any antibiotics for this. We will hold on any radiologic studies for now. Patient was given return precautions. She expressed understanding and agreement. Discharge Plan Departure Patient Disposition: Home Clinical Impression: Bacterial vaginosis Instructions: DI for Bacterial Vaginosis Activity Restrictions/Additional Instructions: I recommend that you take the antibiotics as directed. There were some cultures pending at the time of your discharge him we will contact you if we need to add any antibiotics. Contact your primary doctor for a follow-up. Return to the emergency department for new symptoms. Prescriptions: New metronidazole 500 mg tablet 500 mg PO BID 7 Days Qty: 13 0RF No Action mupirocin 2 % ointment 1 applic topical TID Qty: 15 0RF lidocaine 5 % adhesive patch,medicated 1 patch topical DAILY Qty: 15 0RF Rx Instructions: leave on most painful area for up to 12 hrs cyclobenzaprine 5 mg tablet 5 mg PO TID PRN (Reason: muscle spasm) Qty: 10 0RF multivitamin [Multiple Vitamins] 1 EACH tablet 1 tab PO QDAY Qty: 0 Referrals: Missy Guerra DO [Primary Care Provider] - Stand Alone Forms: Patient Portal/API, Work Release Note
[2022-09-03 23:06] LABS: Bacteria Urine Few (2-10); Culture Indicated Urine Specimen Cultured; RBC Urine 1-5/HPF (0-5/HPF); Squamous Epithelial Cell Urine 1-5 /HPF (0-5/HPF); WBC Urine 1-5/HPF (0-5/HPF)
[2022-09-04] MEDS: metroNIDAZOLE 500 MG TABLET PO (00:08)
[2022-09-04 00:15] VITALS: BP 125/89; PULSE 80; RESP 16; O2SAT 98
== END 2022-09-04 00:16 | disposition home or self-care (01) ==
PROVIDERS: Emergency Provider Emergency Medicine; PCP Family Medicine
DX: N76.0 Acute vaginitis (principal); F34.1 Dysthymic disorder; F41.1 Generalized anxiety disorder
CPT/HCPCS: 81003; 81015; 81025; 87081; 87086; 87210; 87220; 99283; Q3014

== ENCOUNTER → 2022-10-30 15:09 | Outpatient (CLI) | payer OTHER, SELFPAY ==
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
== END ==
PROVIDERS: PCP Family Medicine; Referring Provider Family Medicine; Visit Provider Family Medicine
DX: M54.2 Cervicalgia (principal)
CPT/HCPCS: 72040

== ENCOUNTER → 2022-11-09 15:18 | Outpatient (CLI) | payer OTHER, SELFPAY | PROVIDERS: PCP Family Medicine; Visit Provider Nurse Practitioner Family | DX: J02.9 Acute pharyngitis, unspecified (principal) | CPT/HCPCS: 87070; 87077; 87147 ==

== ENCOUNTER 2022-11-13 18:25 | Emergency (ER) | payer OTHER, SELFPAY ==
[2022-11-13 19:19] VITALS: BP 118/70; PULSE 83; RESP 18; TEMP 37.1; O2SAT 99; BMI 41.9
== END 2022-11-13 21:27 | disposition left against medical advice (07) ==
PROVIDERS: Emergency Provider Emergency Medicine; PCP Family Medicine
CPT/HCPCS: 99281

== ENCOUNTER 2023-01-24 21:15 | Emergency (ER) | payer OTHER, SELFPAY ==
[2023-01-24 21:32] VITALS: BP 126/81; PULSE 85; RESP 18; TEMP 36.7; O2SAT 97; BMI 42.9
[2023-01-24 21:41] LABS: Appearance Urine UA CLOUDY; Bilirubin Urine UA NEGATIVE (NEGATIVE); Glucose Urine UA NEGATIVE (Negative); Ketones Urine UA NEGATIVE (NEGATIVE); Leukocyte Esterase Urine UA 3+ (NEGATIVE); Nitrite Urine UA NEGATIVE (Negative); Occult Blood Urine UA 3+ (Negative); Protein Urine UA TRACE (Negative); Urobilinogen Urine UA 0.2 E.U./dL (0.2)
[2023-01-24 21:48] LABS: pH Urine UA 6.5 (4.5-8.0)
[2023-01-24 21:51] LABS: Bacteria Urine Moderate (10-30); RBC Urine >100/HPF (0-5/HPF); Squamous Epithelial Cell Urine 1-5 /HPF (0-5/HPF); WBC Urine 30-100/HPF (0-5/HPF)
[2023-01-24 21:52] LABS: Color Urine UA OTHER
[2023-01-24 22:03] LABS: Culture Indicated Urine Specimen Cultured
--- NOTE | 2023-01-24 22:46 | ED_ITS ---
HPI - Female Genitourinary General Chief complaint: Urogenital-Female Stated complaint: lower abd pain Time Seen by Provider: 01/24/23 22:26 Source: patient Mode of arrival: Ambulatory Limitations: no limitations History of Present Illness HPI Narrative: 22-year-old female with history of headaches and prior bacterial vaginosis. Patient states she has had a little bit of right side abdominal and flank pain for past week but started developing this evening dysuria, urgency and frequency. Patient denies fevers or chills. No vomiting but has had nausea. Patient has also noted that she started her period in the last several days. She states she has had bladder infections after periods before. Patient denies any constipation she is had some loose stools. She has not had any new discharge, she states her menses cell little bit heavier/junky. Patient states she is sexually active. States not highly suspicious for STI, she has been tested in the past. She is accompanied by her boyfriend. Patient states that she has had bacterial vaginosis before but also UTIs. She states feels little bit more like UTIs. She states she had steroid injections in her occipital muscles 1-2 months ago. Has had prior ankle and knee surgery. No daily medications. Allergic to sulfa. Ibuprofen makes her lips swell. Related Data Home Medications Medication Instructions Recorded Confirmed multivitamin (Multiple Vitamins 1 tab PO QDAY ##0 08/12/17 01/15/23 tablet) lidocaine 5 % topical patch 1 patch topical DAILY PRN 01/15/23 Previous Rx's Medication Instructions Recorded ciprofloxacin HCl 500 mg tablet 500 mg PO BID #14 tabs 01/24/23 fluconazole 150 mg tablet 150 mg PO .qod 2 doses #2 tabs 01/24/23 (Diflucan) Allergies Allergy/AdvReac Type Severity Reaction Status Date / Time ibuprofen Allergy Mild LIPS SWELL Verified 01/24/23 21:35 Sulfa (Sulfonamide Allergy Mild RASH Verified 01/24/23 21:35 Antibiotics) Review of Systems Review of Systems ROS Unobtainable: All systems reviewed & are unremarkable except as noted in HPI and below Patient History Medical History Chronic headaches Chronic neck pain Depression Caridad-Danlos syndrome Family history of breast cancer Latex allergy Myofascial pain Occipital neuralgia Surgical History History of ankle surgery History of knee surgery Family History Mother Caridad-Danlos syndrome alcohol intake frequency: holidays/special occasions only Substance Use Type: marijuana Exam Narrative Exam Narrative: GENERAL: Alert and oriented x three, well-nourished female in mild distress. HEENT: Head normocephalic, atraumatic, EOMI, pupils reactive, face symmetric, moist mucous membranes NECK: Supple, full range of motion CARDIOVASCULAR: Regular rate and rhythm without murmurs, rubs or gallops. RESPIRATORY: Breath sounds equal bilaterally, no wheezes rales or rhonchi. ABDOMEN: Soft, positive for suprapubic tenderness. Normoactive bowel sounds all 4 quadrants. No guarding or rebound, rigidity, no mass : No CVA tenderness EXTREMITIES: Normal range of motion, no clubbing or edema. Neurovascularly intact NEUROLOGICAL: Cranial nerves II through XII grossly intact. Moving all extremities SKIN: Warm, dry, no petechiae, no rashes or lesions. Initial Vital Signs Initial Vital Signs: Vital Signs Temperature 98.1 F 01/24/23 21:32 Pulse Rate 85 01/24/23 21:32 Respiratory Rate 18 01/24/23 21:32 Blood Pressure 126/81 01/24/23 21:32 Pulse Oximetry 97 01/24/23 21:32 Oxygen Delivery Method Room Air 01/24/23 21:32 Course Orders Ordered: ED Orders 01/24/23 23:00 Wet Prep Tric BV [place] Stat Discontinued Medications Ciprofloxacin (Ciprofloxacin 250 Mg Tablet) 500 mg PO NOW ONE Stop: 01/24/23 23:11 Last Admin: 01/24/23 23:13 Dose: 500 mg Documented By: AMU Vital Signs Vital signs: Vital Signs - 8 hr 01/24/23 23:28 Pulse Rate 80 Respiratory Rate 16 Blood Pressure 118/65 Pulse Oximetry 100 Oxygen Delivery Method Room Air MDM - Female Genitourinary Lab Data Labs: Lab Results 01/24/23 01/24/23 Range/Units 21:30 21:30 Urine Color Other Urine Appearance Cloudy Urine pH 6.5 (4.5-8.0) Ur Specific [place] 1.010 (1.000-1.035) Urine Protein Trace H (Negative) Urine Glucose (UA) Negative (Negative) g/dL Urine Ketones Negative (NEGATIVE) Urine Occult Blood 3+ H (Negative) Urine Nitrate Negative (Negative) Urine Bilirubin Negative (NEGATIVE) Urine Urobilinogen 0.2 (0.2) E.U./dL Ur Leukocyte Esterase 3+ H (NEGATIVE) Urine RBC >100/hpf H (0-5/HPF) Urine WBC 30-100/hpf H (0-5/HPF) Ur Squamous Epith Cells 1-5 /hpf (0-5/HPF) Urine Bacteria Moderate (10-30) H (None) Ur Culture Indicated? Specimen cultured Urine Test Negative (Negative) MDM Narrative Medical decision making narrative: This is a 22-year-old female who presents with complaint of right-sided discomfort with dysuria, urgency and frequency, she has some mild flank discomfort. Suspect likely UTI/early pyelonephritis, patient does not have any major changes to vitals and isn't felt to be requiring IV or labs. Patient did send a wet prep showed some white cells on clue cells and urine which is negative. Patient started on oral antibiotic. Discharge Plan Departure Patient Disposition: Home Clinical Impression: UTI (urinary tract infection) Instructions: DI for Urinary Tract Infection (UTI) Activity Restrictions/Additional Instructions: Please follow-up for recheck or return if your symptoms are not significantly improving in the next 2-3 days. You can take Tylenol up to a 1000 mg every 6 hours as needed. You may take Pyridium 1 2 tablets every 8 hours as needed. Take antibiotics until gone. You may take Diflucan if he develop a yeast infection. I would recommend starting this towards the end or after your antibiotics. Prescription sent to [facility] in [place]. Please return for fevers, worsening abdominal back or flank pain, vomiting, lightheadedness or passing out, difficulty with urination, black or bloody stools or other new or concerning changes Prescriptions: New ciprofloxacin HCl 500 mg tablet 500 mg PO BID Qty: 14 0RF fluconazole [Diflucan] 150 mg tablet 150 mg PO .qod Qty: 2 0RF No Action multivitamin [Multiple Vitamins] 1 EACH tablet 1 tab PO QDAY Qty: 0 lidocaine 5 % adhesive patch,medicated 1 patch topical DAILY PRN Rx Instructions: leave on most painful area for up to 12 hrs Referrals: Missy Guerra DO [Primary Care Provider] - Stand Alone Forms: Patient Portal/API
[2023-01-24 23:11] LABS: Pregnancy Test Urine Negative (Negative)
[2023-01-24] MEDS: CIPROFLOXACIN 250 MG TABLET 500 MG PO (23:13)
[2023-01-24 23:28] VITALS: BP 118/65; PULSE 80; RESP 16; O2SAT 100
== END 2023-01-24 23:29 | disposition home or self-care (01) ==
PROVIDERS: Emergency Provider Emergency Medicine; PCP Family Medicine
DX: N39.0 Urinary tract infection, site not specified (principal)
CPT/HCPCS: 81001; 81025; 87077; 87086; 87186; 87210; 99283

== ENCOUNTER → 2023-03-20 13:01 | Outpatient (CLI) | payer OTHER, SELFPAY ==
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
== END ==
PROVIDERS: PCP Family Medicine; Referring Provider Anesthesiology; Visit Provider Anesthesiology
DX: S13.4XXA Sprain of ligaments of cervical spine, initial encounter (principal); M47.812 Spondylosis without myelopathy or radiculopathy, cervical region; M48.02 Spinal stenosis, cervical region; R51.9 Headache, unspecified; M54.81 Occipital neuralgia; M54.2 Cervicalgia; G89.29 Other chronic pain
CPT/HCPCS: 72141

== ENCOUNTER → 2023-03-27 09:48 | Outpatient (CLI) | payer OTHER, SELFPAY ==
--- NOTE | 2023-03-27 09:49 | DI.US.S_ITS ---
ULTRASOUND OF RIGHT BREAST: 03/27/2023 CLINICAL: Focal right breast pain. Comparison is made to exams dated: 03/12/2022 mammogram and 03/12/2022 ultrasound - [facility]. Real-time ultrasound of the right breast was performed. Escobar scale images of the real-time examination were reviewed. No significant abnormalities were seen sonographically in the right breast. IMPRESSION: NEGATIVE There is no sonographic evidence of malignancy. There is no abnormality seen in the right breast to correspond with the area of clinical concern and palpable abnormality at 2 o'clock, however, recommend clinical follow up for persistent or worsening symptoms, or development of any clinically suspicious findings. There is no abnormality seen in the right breast to correspond with the area of clinical concern and pain at 10 o'clock, however, recommend clinical follow up for persistent or worsening symptoms, or development of any clinically suspicious findings. Findings and recommendations were conveyed to the patient during today's evaluation. This exam was interpreted at Station ID: [id number]. Electronically Signed By: Joseph Mayorga M.D. at/:03/27/2023 10:43:40 letter sent: Clinical Evaluation Ultrasound BI-RADS: 1 Negative
== END ==
PROVIDERS: PCP Family Medicine; Referring Provider Physician Assistant; Visit Provider Physician Assistant
DX: N63.12 Unspecified lump in the right breast, upper inner quadrant (principal); N64.4 Mastodynia
CPT/HCPCS: 76642

== ENCOUNTER 2023-04-10 09:23 | Outpatient (CLI) | payer OTHER, SELFPAY ==
[2023-04-10] VITALS (12 sets, daily range): BP systolic 118–167; BP diastolic 66–90; PULSE 75–93; RESP 13–20; TEMP 35.9; O2SAT 96–98
--- NOTE | 2023-04-10 09:24 | DI.RAD.S_ITS ---
PROCEDURE: PAIN C/T FACET INJ/BLK 1ST L INDICATIONS: SPONDYLOSIS COMPARISON: [facility], MR, MR CERVICAL SPINE WO CON, 03/20/2023, 13:29. FINDINGS: Fluoroscopic spot filming was performed to verify placement of spinal needles on the left at the C4, C5, and C6 levels, as labeled on the films. Appropriate location of the needle tips was confirmed by injection of iodinated contrast. IMPRESSION: Intraprocedural examination demonstrating appropriate positions of the needles. Dictated by: Sung Telles M.D. on 04/10/2023 at 17:27 Approved by: Sung Telles M.D. on 04/10/2023 at 17:27
[2023-04-10] MEDS: MIDAZOLAM 2 MG/2 ML VIAL IV (10:07)
[2023-04-10] MEDS: iopamidoL 15 ML VIAL 3 ML INJ (10:19)
[2023-04-10] MEDS: BUPIVACAINE 0.5% (PF) 10 ML VIAL 5 ML INJ (10:19)
[2023-04-10] MEDS: MIDAZOLAM 2 MG/2 ML VIAL 1 MG IV (10:24)
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
== END 2023-04-10 11:02 | disposition home or self-care (01) ==
LOC: RAD 09:24
PROVIDERS: PCP Family Medicine; Referring Provider Anesthesiology; Visit Provider Anesthesiology
DX: M47.812 Spondylosis without myelopathy or radiculopathy, cervical region (principal)
CPT/HCPCS: 64490; 64491; 99152; 99153; J2250

== ENCOUNTER → 2023-04-19 18:04 | Outpatient (CLI) | payer OTHER, SELFPAY | PROVIDERS: PCP Family Medicine; Visit Provider Physician Assistant | DX: J02.9 Acute pharyngitis, unspecified (principal) | CPT/HCPCS: 87070 ==

== ENCOUNTER 2023-06-05 07:50 | Outpatient (CLI) | payer OTHER, MEDICAID, SELFPAY ==
[2023-06-05] VITALS (8 sets, daily range): BP systolic 124–138; BP diastolic 66–98; PULSE 72–89; RESP 11–18; TEMP 36.2; O2SAT 95–99
--- NOTE | 2023-06-05 07:56 | DI.RAD.S_ITS ---
PROCEDURE: PAIN C/T FACET INJ/BLK 1ST L INDICATIONS: Spondylosis COMPARISON: [facility], , PAIN C/T FACET INJ/BLK 1ST L, 04/10/2023, 10:11. FINDINGS: Fluoroscopic spot filming was performed to verify placement of spinal needles at the left C4, C5, and C6 level(s), as labeled on the films. Appropriate location(s) of the needle tip(s) was confirmed by injection of iodinated contrast. IMPRESSION: Intraoperative fluoroscopy for left cervical medial branch block. Dictated by: Marlee Knott M.D. on 06/05/2023 at 12:15 Approved by: Marlee Knott M.D. on 06/05/2023 at 12:15
[2023-06-05] MEDS: MIDAZOLAM 2 MG/2 ML VIAL IV (08:40)
[2023-06-05] MEDS: iopamidoL 15 ML VIAL 3 ML INJ (08:44)
[2023-06-05] MEDS: LIDOCAINE 2% INJ MDV 20ML 5 ML INJ (08:45)
--- NOTE | 2023-06-05 10:03 | P.PCN_ITS ---
Date/Time/Diagnoses Date of procedure: 06/05/23 Time of procedure: 08:30 Procedure Notes Physician: Teofilo Marquez Total Fluoroscopy time (seconds): 26 Total sedation minutes: 16 Procedure in detail & Post-procedure care: Left C4, 5, 6 Cervical Medial Branch Blocks Indications: Karin is presenting for treatment of cervical spondylosis with cervical pain. Preoperative diagnosis: Cervical spondylosis Postoperative diagnosis: Same Pre-procedure History: Patient demonstrates today moderate to severe non- radicular neck pain without neurologic deficit aggravated by hyperextension yes Neck pain greater than arm pain? yes Patient today has tenderness over the suspected joint(s) yes History of post-traumatic injury? no Hypertrophic arthropathy yes Neck pain associated with suspected motion segment instability, hypermobility or pseudoarthrosis no Pre-testing pain score (VAS): 7/10 Focused Examination: Ax3 Mood and affect are normal Vital Signs: VSS ASA: 2 Consent: Following review of allergies and potential side effects/complications, including, but not necessarily limited to, infection, allergic reaction, local tissue breakdown, stroke, temporary or permanent nerve injury, paralysis, and possible , the patient indicated that they understood and agreed to proceed.? An informed consent document was signed by the patient, witnessed by a nurse and placed in the patient's chart.? Additionally, other treatment options including medications and physical therapy were reviewed with the patient. All questions were answered. Site was then marked. Anesthesia: After review of previous anesthetic history and IV conscious sedation, the patient was deemed safe to proceed with today's procedure with IV conscious sedation. IV sedation was accomplished with midazolam 2 mg administered by the RN after order by Dr. Marquez. Sedation was titrated to patient comfort during the course of the procedure. Patient remained responsive to all verbal commands. Position: Prone Monitoring: NIBP, Pulse oximetry, 3 lead EKG Needle used: 22G 3.5 inch spinal needle Contrast: Isovue 300M Injectate: 2% lidocaine 0.5 mL per site Procedure: The patient was brought into the procedure room and positioned into the prone position. Skin was prepped with a Chloraprep solution, allowed to air dry, and then draped in sterile fashion.? The left C4-5 and C5-6 facet joints were visually identified with fluoroscopy. Lidocaine 1% was used to anesthetize the skin over each target destination with a 25ga needle. A 22 ga, 3.5 inch spinal needle was advanced to the location of the medial branch at the waist of the articular pillar using intermittent fluoroscopy in the AP view. Isovue 300M contrast 0.2ml was injected at each level outlining the borders for each level in the AP/lateral views and confirmed in the foraminal view. There was no evidence of vascular or intrathecal uptake. The above injectate was slowly injected at each target destination. At the end of the procedure the needles were withdrawn and Band-Aids were applied for a dressing. Post Procedure: Patient was taken to the recovery and monitored. The patient was provided a Pain Log to continue to record the patient's response to the target- specific procedure prior to the patient's follow-up visit with the referring physician. Patient was stable upon discharge. Detailed post procedure instructions were provided. Patient was asked to call in the event of worsening pain, fever, weakness, numbness or bladder or bowel incontinence. Postoperatively, the patient demonstrates the following changes with hyperextension and with tenderness over the suspected joint(s). Provacative testing using the facet loading test Right side Left side Directly before the block ?VAS (0-10) = 7/10 VAS (0-10) = 7/10 5 minutes after the block VAS (0-10) = 1/10 VAS (0-10) = 1/10 Percentage relief obtained with this diagnostic block 86% 86% Any improved physical functioning directly after the blocks? Range of motion Based on the medial branches blocked today, if the patient meets insurance criteria for radiofrequency, the treatment should result in the denervation of the left C4-5 and C5-6 facet joint nerves. We would expect to denervate a total of 2 facets during the radiofrequency ablation. Complications: None
== END 2023-06-05 09:15 | disposition home or self-care (01) ==
PROVIDERS: PCP Family Medicine; Referring Provider Anesthesiology; Visit Provider Anesthesiology
DX: M47.812 Spondylosis without myelopathy or radiculopathy, cervical region (principal)
CPT/HCPCS: 64490; 64491; 99152; J2250

== ENCOUNTER → 2023-06-18 16:11 | Outpatient (CLI) | payer OTHER, SELFPAY ==
[2023-06-20 22:07] LABS: QuantiFERON Mitogen Value >10.00 IU/mL (.); QuantiFERON TB Gold Plus Negative (Negative); QuantiFERON TB1 Ag Value 0.02 IU/mL (.); QuantiFERON TB2 Ag Value 0.01 IU/mL (.)
== END ==
PROVIDERS: PCP Family Medicine; Referring Provider Family Medicine; Visit Provider Family Medicine
DX: Z11.1 Encounter for screening for respiratory tuberculosis (principal)
CPT/HCPCS: 86480

== ENCOUNTER → 2023-06-19 15:41 | Outpatient (CLI) | payer OTHER, SELFPAY ==
[2023-06-19 16:56] LABS: Add Manual Diff / Slide Review NO; Basophils Absolute Auto 100 /uL (0-100); Basophils Percent Auto 0.5 % (0-2); Eosinophils Absolute Auto 200 /uL (0-450); Eosinophils Percent Auto 1.9 % (2-4); Hematocrit 38.6 % (36-46); Hemoglobin 12.9 g/dL (12.0-16.0); Lymphocytes Absolute Auto 2800 /uL (1100-4500); Lymphocytes Percent Auto 25.4 % (25-40); Mean Corpuscular HGB Conc 33.4 % (30-36); Mean Corpuscular Volume 83.9 fL (80-100); Monocytes Absolute Auto 800 /uL (0-900); Monocytes Percent Auto 6.7 % (3-14); Neutrophils Absolute Auto 7300 /uL (1500-7000); Neutrophils Percent Auto 65.5 % (50-75); Platelet Count 367 X10^3/uL (150-400); Red Cell Distribution Width 13.9 % (11.6-14.8); White Blood Cell Count 11.1 X10^3/uL (4.5-11.0)
[2023-06-19 17:03] LABS: Hemoglobin A1C% w Est Avg Glu 5.4 % (4.0-6.0)
[2023-06-19 17:16] LABS: Alanine Aminotransferase 24 IU/L (<35); Albumin 4.3 g/dL (3.5-5.0); Albumin Globulin Ratio 1.4 (1.0-2.8); Alkaline Phosphatase 56 U/L (38-126); Aspartate Aminotransferase 31 IU/L (14-36); BUN Creatinine Ratio 24.5 (6-22); Bilirubin Total 0.3 mg/dL (0.2-1.3); Blood Urea Nitrogen 12 mg/dL (7-17); Calcium 9.8 mg/dL (8.4-10.2); Carbon Dioxide 24 mmol/L (22-32); Chloride 104 mmol/L (98-107); Estimated Glomerular Filt Rate > 60 mL/min (>60); Globulin 3.1 g/dL (1.7-4.1); Glucose 103 mg/dL (70-100); HEMOLYSIS 28 (0-50); Potassium 3.7 mmol/L (3.4-5.1); Sodium 137 mmol/L (137-145); Total Protein 7.4 g/dL (6.3-8.2)
[2023-06-19 17:48] LABS: TSH w/ Reflex to FT4 1.78 uIU/mL (0.47-4.68)
== END ==
PROVIDERS: PCP Family Medicine; Referring Provider Physician Assistant; Visit Provider Physician Assistant
DX: Z13.1 Encounter for screening for diabetes mellitus (principal); R53.83 Other fatigue; E66.01 Morbid (severe) obesity due to excess calories; Z83.3 Family history of diabetes mellitus
CPT/HCPCS: 36415; 80053; 83036; 84443; 85025

== ENCOUNTER 2023-07-23 20:24 | Emergency (ER) | payer OTHER, MEDICAID, SELFPAY ==
[2023-07-23 20:28] VITALS: BP 141/84; PULSE 97; RESP 20; TEMP 37.1; O2SAT 98; BMI 43.5
[2023-07-23 20:45] VITALS: BP 149/80; PULSE 75; O2SAT 98
[2023-07-23 21:35] VITALS: BP 120/69; PULSE 84; RESP 18; O2SAT 97
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
== END 2023-07-23 21:31 | disposition home or self-care (01) ==
PROVIDERS: Emergency Provider Emergency Medicine; PCP Family Medicine
DX: J06.9 Acute upper respiratory infection, unspecified (principal)
CPT/HCPCS: 99281; 99283

== ENCOUNTER 2023-09-24 17:59 | Emergency (ER) | payer OTHER, MEDICAID, SELFPAY ==
[2023-09-24] VITALS (13 sets, daily range): BP systolic 118–166; BP diastolic 70–88; PULSE 63–86; RESP 18; TEMP 37.2; O2SAT 97–100; BMI 43.2
[2023-09-24 19:02] LABS: Bacteria Urine Moderate (10-30); RBC Urine None Seen (0-5/HPF); Urine Volume 10mL (spun); WBC Urine None Seen (0-5/HPF)
[2023-09-24 19:03] LABS: Culture Indicated Urine Cult Not Indicated; Squamous Epithelial Cell Urine 1-5 /HPF (0-5/HPF)
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
[2023-09-24] MEDS: AMOXICILLIN/CLAV 875/125 MG 1 TAB PO (23:49)
== END 2023-09-25 00:03 | disposition home or self-care (01) ==
PROVIDERS: Emergency Provider Emergency Medicine; PCP Family Medicine
DX: H60.12 Cellulitis of left external ear (principal); N36.8 Other specified disorders of urethra
CPT/HCPCS: 81003; 81015; 81025; 87210; 99283

== ENCOUNTER 2023-10-10 02:32 | Emergency (ER) | payer OTHER, MEDICAID, SELFPAY ==
[2023-10-10 02:45] VITALS: BP 155/90; PULSE 98; RESP 20; TEMP 36.4; O2SAT 99; BMI 43.2
[2023-10-10 02:55] LABS: Appearance Urine UA TURBID; Bilirubin Urine UA NEGATIVE (NEGATIVE); Color Urine UA YELLOW; Glucose Urine UA NEGATIVE (Negative); Ketones Urine UA NEGATIVE (NEGATIVE); Leukocyte Esterase Urine UA 2+ (NEGATIVE); Nitrite Urine UA NEGATIVE (Negative); Occult Blood Urine UA 3+ (Negative); Protein Urine UA 2+ (Negative); Specific Gravity Urine UA >=1.030 (1.000-1.035)
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
[2023-10-10 02:59] LABS: Urine Volume Low Vol <10mL (spun)
[2023-10-10 03:00] LABS: RBC Urine 30-100/HPF (0-5/HPF); Squamous Epithelial Cell Urine 1-5 /HPF (0-5/HPF); Transitional Epi Cells Urine 0-1/HPF (0-5/HPF); WBC Urine >100/HPF (0-5/HPF)
[2023-10-10 03:01] LABS: Bacteria Urine Moderate (10-30); Culture Indicated Urine Specimen Cultured; Pregnancy Test Urine Negative (Negative)
[2023-10-10] MEDS: NITROFURANTOIN ER 100 MG CAPSULE PO (03:19)
[2023-10-10] MEDS: PHENAZOPYRIDINE 100 MG TABLET PO (03:19)
== END 2023-10-10 03:23 | disposition home or self-care (01) ==
PROVIDERS: Emergency Provider Emergency Medicine; PCP Family Medicine
DX: N39.0 Urinary tract infection, site not specified (principal)
CPT/HCPCS: 81001; 81025; 87077; 87086; 87186; 99283

== ENCOUNTER → 2024-06-15 18:14 | Outpatient (CLI) | payer OTHER, MEDICAID, SELFPAY | PROVIDERS: PCP Family Medicine; Visit Provider Nurse Practitioner Family | DX: R05.1 Acute cough (principal) | CPT/HCPCS: 87070 ==

== ENCOUNTER → 2024-12-04 08:02 | Outpatient (CLI) | payer OTHER, SELFPAY ==
--- NOTE | 2024-12-04 08:03 | DI.ECHO.S_ITS ---
[facility] : : [address] : : [place] : : [id number] : : Phone: [phone] Echocardiogram Report + + :Name: KRYSTINA MCDOWELL Study Date: 12/04/2024 Height: 66.5 in: :[facility] ReadingLocation: Weight: 275 lb : : Gender: Female BSA: 2.3 m2 : :: 2000 Age: 24 yrs BP: 130/87 mmHg: :Reason For Study: MELLISSA SYNDORME : :Ordering Physician: MARILYN BHANDARI Performed By: Sowmya Sumner : :Referring: MARILYN BHANDARI : + + Interpretation Summary 1. The left ventricular contractility is normal. Estimated ejection fraction is greater than 55% with no segmental wall motion abnormalities. No LVH. No diastolic dysfunction. 2. The right ventricular contractility is normal. 3. All cardiac chambers are of normal size. 4. No significant valvular abnormalities. 5. No obvious intracardiac shunts. 6. No obvious intra masses nor thrombi. 7. No hemodynamically significant pericardial effusion. 8. Low right-sided filling pressures. 9. The aortic root as well as the ascending thoracic aorta are normal sized. Conclusion: Normal biventricular function with no significant valvular nor structural abnormalities. No aortic aneurysm appreciated. Procedure: A two-dimensional transthoracic echocardiogram with color flow and Doppler was performed. The study quality was technically adequate. There is no prior echocardiogram noted for this patient. The patient was in sinus rhythm with heart rates between 62-75 bpm during the exam. Left Ventricle: The left ventricle is normal in size and wall thickness. The ejection fraction is estimated to be 55-60%. Diastolic parameters suggest probable normal left ventricular diastolic function and normal filling pressures. Right Ventricle: The right ventricle is normal in size, thickness and function. Atria: The left atrial size is normal. Right atrial size is normal. There is no Doppler evidence for an interatrial shunt. Mitral Valve: The mitral valve leaflets appear to open well. There is no evidence of mitral valve prolapse. There is trace mitral regurgitation. Aortic Valve: The aortic valve opens well. There is no aortic valve stenosis. No aortic regurgitation is present. Tricuspid Valve: The tricuspid valve leaflets are thin and pliable. There is trace tricuspid regurgitation. Pulmonary artery pressures cannot be estimated because of the lack of a measurable TR jet velocity. Pulmonic Valve: The pulmonic valve is not well seen, but is grossly normal. There is no pulmonic valvular regurgitation. Great Vessels: The aortic root is normal size. The dimensions of the ascending aorta are normal. The IVC is of normal diameter and collapses greater than 50% with a sniff. This suggests a low right atrial pressure of 3 mm Hg. Pericardium/ Pleura There is no pericardial effusion. There is no pleural effusion. MMode/2D Measurements & Calculations LVIDd: 5.6 cm LVOT diam: 2.3 cm LVIDs: 4.0 cm Ao root diam: 2.9 cm FS: 29.0 % asc Aorta Diam: 2.7 cm EPSS: 1.0 cm Ao Arch Diam (Prox Trans): 2.5 cm IVSd: 0.79 cm LVPWd: 0.74 cm LV dodson. diameter/BSA (cm/m^2): 2.4 LV sys. diameter/BSA (cm/m^2): 1.7 LA A2 area: 13.5 cm2 RA long axis: 4.0 cm LA A4 area: 15.3 cm2 RA area: 10.9 cm2 LA length (vol): 4.6 cm RA vol: 25.5 ml LA vol: 38.0 ml RA : 11.0 ml/m2 LA vol index: 16.5 ml/m2 IVC diam: 1.4 cm RVD1 (basal): 3.6 cm TAPSE: 1.7 cm Doppler Measurements & Calculations Ao V2 max: 131.2 cm/sec LVOT Max Matt: 91.1 cm/sec Ao V2 mean: 91.6 cm/sec LV V1 max P.3 mmHg Ao max P.9 mmHg LV V1 VTI: 18.2 cm Ao mean P.8 mmHg AARON(I,D): 2.7 cm2 Ao V2 VTI: 27.1 cm AARON(V,D): 2.8 cm2 sev ratio: 0.67 AARON indexed to BSA (cm^2/m^2): 1.2 MV E max matt: 71.8 cm/sec PA V2 max: 94.8 cm/sec MV A max matt: 51.5 cm/sec PA V2 mean: 66.9 cm/sec MV E/A: 1.4 PA mean P.0 mmHg Med Peak E' Matt: 10.9 cm/sec PA pr(Accel): 26.3 mmHg E/E' med: 6.6 Lat Peak E' Matt: 17.2 cm/sec E/E' lat: 4.2 E/e' average: 5.4 MV dec time: 0.19 sec SV(LVOT): 72.6 ml Reading Physician:ANGELIQUE
== END ==
LOC: ECHO 08:03
PROVIDERS: PCP Family Medicine; Referring Provider Internal Medicine; Visit Provider Internal Medicine
DX: Q79.60 Ehlers-Danlos syndrome, unspecified (principal)
CPT/HCPCS: 93306

== ENCOUNTER 2025-05-25 08:44 | Outpatient (CLI) | payer OTHER, SELFPAY ==
[2025-05-25] VITALS (11 sets, daily range): BP systolic 114–142; BP diastolic 58–95; PULSE 77–95; RESP 15–17; TEMP 36.7; O2SAT 94–99
[2025-05-25] MEDS: MIDAZOLAM 2 MG/2 ML VIAL IV (10:04)
--- NOTE | 2025-05-25 10:33 | PM.PROC.IR.1 ---
Date/Time/Diagnoses Date of procedure: 05/25/25 Time of procedure: 10:33 Pre-procedure diagnosis: 1. CERVICAL STENOSIS, 2. CERVICAL HNP WITH UPPER EXTREMITY RADICULAR FEATURES Post-procedure diagnosis: same Procedure Notes Procedure: 1. FLUORSCOPICALLY GUIDED CONTRAST CONTROLLED INTERLAMINAR EPIDURAL STEROID INJECTION - C6/7 TL DICK Indications: Karin is referred by Dr. Santamaria for treatment of Cervical HNP with Upper Extremity Paresthesias. Physician: Lobo Bowden Total Fluoroscopy time (seconds): 29 Total sedation minutes: 20 Complications: none Procedure in detail & Post-procedure care: FINDINGS Cervical Stenosis due to disc deterioration and nerve root irritation and nerve root irritation DESCRIPTION OF PROCEDURE Fluoroscopically guided, contrast-controlled C6/7 translaminar epidural steroid injection with conscious sedation. Following review of allergy and review of potential side effects and complications, including, but not necessarily limited to, infection, allergic reaction, local tissue breakdown, temporary as well as permanent nerve injury, stroke, paralysis, and possible , the patient indicated that patient understood and agreed to proceed. An informed consent document was signed by the patient, witnessed by a nurse, and placed in the patient's chart. Additionally, other treatment options including modalities, medications, and physical therapy were reviewed with the patient. After review of previous anaesthesic history and IV conscious sedation the patient was deemed safe to proceed with today?s procedure with IV conscious sedation as ASA class II designation. Safety time-out was performed to confirm patient ID, procedure to be performed and site of procedure. IV sedation was accomplished with a combination of 4mg of Versed administered by the RN after DO order, titrated to patient comfort during the course of the procedure while the patient remained responsive to all verbal commands. In the prone position, following sterile prep and drape of the cervical region, the C6/7 translaminar space was identified fluoroscopically. The skin was anesthetized via a 25-gauge 1.5-inch needle with 1% lidocaine solution. At this point, a 25-gauge, 2.5-inch short bevel spinal needle was atraumatically introduced and advanced under fluoroscopic guidance into epidural space at the C6/7 translaminar space. Depth was confirmed on lateral view. Radiological data, including multiple fluoroscopic views of the cervical spine, reveal a spinal needle at the C6/7 translaminar space. Lateral views then show placement of the needle in the epidural space. Subsequent views show contrast material flowing superiorly and inferiorly in the epidural space. DSA fluoroscopy with live contrast injection, once again, confirmed no vascular or intrathecal uptake. At this point, using loss of resistance technique with saline and air, the epidural space was entered. Following negative aspiration, injection of approximately 1.5 cc of Isovue-[id number] with live fluoroscopy in the AP view confirmed epidural flow in the epidural space without vascular or intrathecal uptake observed. Subsequently, a test dose of 1 cc of 1% lidocaine solution was injected and patient was observed for two minutes without signs or symptoms of complications, including abdominal pain, shortness of breath, bilateral upper or lower extremity weakness, nausea and vomiting, prior to steroid injection. At this point, 3cc or 30mg of dexamethasone was then injected without incident. The patient tolerated the procedure well without signs or symptoms of complications prior to being transferred to the recovery area for further monitoring, The patient was then transferred to the recovery area where they were observed for an appropriate period of time after the injection. The patient reported a VAS score of 6 prior to the procedure and a post-procedure VAS of 0. POST OP INSTRUCTIONS The patient was provided a Pain Log to continue to record their response to the target-specific procedure prior to follow-up visit with the referring provider. Additionally, specific post-injection care instructions and a contact number to our office were provided if concerns arise regarding possible complications associated with the procedure are suspected.
== END 2025-05-25 10:57 | disposition home or self-care (01) ==
LOC: RAD 08:45
PROVIDERS: PCP Family Medicine; Referring Provider Physical Medicine & Rehabilitation; Visit Provider Physical Medicine & Rehabilitation
DX: M48.02 Spinal stenosis, cervical region (principal); M50.123 Cervical disc disorder at C6-C7 level with radiculopathy
CPT/HCPCS: 62321; 99152; J1100; J2250

== ENCOUNTER → 2025-06-19 17:43 | Outpatient (CLI) | payer OTHER, SELFPAY ==
[2025-06-19 18:44] LABS: COVID-19 CEPHEID 4-PLEX PCR Negative (Negative); Influenza A - CEPHEID Flu A NEGATIVE (NEGATIVE); Influenza B - CEPHEID Flu B NEGATIVE (NEGATIVE)
== END ==
PROVIDERS: PCP Family Medicine; Visit Provider Chiropractor
DX: J02.9 Acute pharyngitis, unspecified (principal); R05.1 Acute cough
CPT/HCPCS: 87070; 87147; 87637

== ENCOUNTER → 2025-07-08 08:27 | Outpatient (CLI) | payer OTHER, SELFPAY ==
[2025-07-08 09:21] LABS: Add Manual Diff / Slide Review NO; Hematocrit 42.0 % (36-46); Hemoglobin 14.2 g/dL (12.0-16.0); Lymphocytes Absolute Auto 2900 /uL (1100-4500); Mean Corpuscular HGB Conc 33.8 % (30-36); Mean Corpuscular Hemoglobin 27.8 PG (26-34); Mean Corpuscular Volume 82.3 fL (80-100); Platelet Count 440 X10^3/uL (150-400)
[2025-07-08 09:36] LABS: Cholesterol 183 mg/dL (140-199); HDL Cholesterol 60 mg/dL (40-60); Triglycerides 143 mg/dL (35-150)
[2025-07-08 09:38] LABS: Hemoglobin A1C% w Est Avg Glu 5.3 % (4.0-6.0)
[2025-07-08 10:05] LABS: TSH w/ Reflex to FT4 2.54 uIU/mL (0.47-4.68)
== END ==
PROVIDERS: PCP Family Medicine; Referring Provider Family Medicine; Visit Provider Family Medicine
DX: Z13.220 Encounter for screening for lipoid disorders (principal); E66.9 Obesity, unspecified; R53.83 Other fatigue; F33.1 Major depressive disorder, recurrent, moderate; F41.1 Generalized anxiety disorder; F34.1 Dysthymic disorder
CPT/HCPCS: 36415; 80061; 83036; 84443; 85025